=== PATIENT | female | born 1970 | race African-American/Black ===

== ENCOUNTER → 2017-08-05 09:14 | Outpatient (CLI) | payer OTHER, MEDICAID, SELFPAY ==
[2017-08-05 10:53] LABS: Add Manual Diff / Slide Review NO; Basophils Percent Auto 0.8 % (0-2); Eosinophils Percent Auto 3.7 % (2-4); Hematocrit 45.5 % (36-46); Hemoglobin 15.3 g/dL (12.0-16.0); Lymphocytes Percent Auto 39.3 % (25-40); Mean Corpuscular HGB Conc 33.5 % (30-36); Mean Corpuscular Hemoglobin 30.3 PG (26-34); Mean Corpuscular Volume 90.4 fL (80-100); Monocytes Percent Auto 8.1 % (3-14); Neutrophils Absolute Auto 2800 /uL (3000-5900); Neutrophils Percent Auto 48.1 % (50-75); Platelet Count 263 X10^3/uL (150-400); Red Blood Cell Count 5.03 X10^6/uL (4.0-5.2); White Blood Cell Count 5.9 X10^3/uL (4.5-11.0)
[2017-08-05 11:13] LABS: Blood Urea Nitrogen 21 mg/dL (7-17); Calcium 9.8 mg/dL (8.4-10.2); Carbon Dioxide 23 mmol/L (22-32); Chloride 103 mmol/L (98-107); Cholesterol 205 mg/dL (140-199); Estimated Glomerular Filt Rate > 60.0 mL/min (>60); Glucose 386 mg/dL (70-100); HDL Cholesterol 66 mg/dL (40-60); HEMOLYSIS < 15 (0-50); LDL Cholesterol Calculated 129 mg/dL (<100); Sodium 140 mmol/L (137-145); Triglycerides 51 mg/dL (35-150)
[2017-08-05 11:39] LABS: Hemoglobin A1C% w Est Avg Glu > 14.0 % (4.0-6.0)
== END ==
PROVIDERS: PCP Family Medicine; Visit Provider Family Medicine
DX: E11.29 Type 2 diabetes mellitus with other diabetic kidney complication (principal)
CPT/HCPCS: 36415; 80048; 80061; 83036; 85025

== ENCOUNTER 2017-11-03 15:14 | Emergency (ER) | payer OTHER, MEDICAID, SELFPAY ==
[2017-11-03 15:18] VITALS: BP 188/108; PULSE 95; RESP 18; TEMP 36.9; O2SAT 95; BMI 40.9
--- NOTE | 2017-11-03 15:55 | DI.RAD.S_ITS ---
PROCEDURE: XR CHEST 1V INDICATIONS: chest pain TECHNIQUE: One view of the chest was acquired. COMPARISON: None. FINDINGS: Surgical changes and devices: None. Lungs and pleura: There is slight appearance of streaky right basilar and retrocardiac opacities. Mediastinum: Mediastinal contours appear normal. Heart size is normal. Bones and chest wall: No suspicious bony lesions. Overlying soft tissues appear unremarkable. IMPRESSION: Slight right basilar and retrocardiac streaky opacities. This could be secondary to poor inspiratory effort. However, recommend correlation or developing airspace disease such as pneumonia. Dictated by: Rocío Rico M.D. on 11/03/2017 at 17:01 Approved by: Rocío Rico M.D. on 11/03/2017 at 17:02
[2017-11-03 16:09] VITALS: BP 172/99; PULSE 90; RESP 17; O2SAT 95
[2017-11-03 16:12] LABS: Add Manual Diff / Slide Review NO; Basophils Percent Auto 0.6 % (0-2); Eosinophils Percent Auto 2.3 % (2-4); Hematocrit 36.5 % (36-46); Hemoglobin 12.7 g/dL (12.0-16.0); Lymphocytes Percent Auto 23.7 % (25-40); Mean Corpuscular HGB Conc 34.9 % (30-36); Mean Corpuscular Hemoglobin 31.6 PG (26-34); Mean Corpuscular Volume 90.5 fL (80-100); Monocytes Percent Auto 7.3 % (3-14); Neutrophils Absolute Auto 5200 /uL (3000-5900); Neutrophils Percent Auto 66.1 % (50-75); Platelet Count 260 X10^3/uL (150-400); Red Blood Cell Count 4.03 X10^6/uL (4.0-5.2); Red Cell Distribution Width 13.4 % (11.6-14.8); White Blood Cell Count 7.8 X10^3/uL (4.5-11.0)
[2017-11-03] MEDS: MAG HYDROX/ALUMINUM/SIMETH SUS 20 ML, LIDOCAINE VISCOUS 2% 15 ML PO (16:17)
[2017-11-03] MEDS: PANTOPRAZOLE 40 MG VIAL IV (16:17)
[2017-11-03] MEDS: ASPIRIN 81 MG TAB 324 MG PO (16:17)
[2017-11-03] MEDS: SODIUM CHLORIDE 0.9% 1,000 ML 150 ML IV (16:18)
[2017-11-03 16:24] LABS: Alanine Aminotransferase 20 IU/L (9-52); Albumin Globulin Ratio 1.3 (1.0-2.8); Alkaline Phosphatase 61 U/L (38-126); Aspartate Aminotransferase 30 IU/L (14-36); BUN Creatinine Ratio 14.6 (6-22); Bilirubin Total 0.9 mg/dL (0.2-1.3); Blood Urea Nitrogen 19 mg/dL (7-17); Calcium 9.3 mg/dL (8.4-10.2); Carbon Dioxide 26 mmol/L (22-32); Chloride 110 mmol/L (98-107); Creatine Kinase 107 U/L (30-135); Estimated Glomerular Filt Rate 43.7 mL/min (>60); Globulin 3.2 g/dL (1.7-4.1); Glucose 149 mg/dL (70-100); Lipase 44 U/L (23-300); Sodium 145 mmol/L (137-145); Total Protein 7.2 g/dL (6.3-8.2)
[2017-11-03 16:35] LABS: Troponin I 0.017 ng/mL (0.01-0.034)
[2017-11-03 16:39] LABS: CKMB % Relative Index 1.3 % (1.5-5.0); Creatine Kinase MB 1.36 ng/mL (<2.37)
[2017-11-03 16:42] LABS: HEMOLYSIS 89 (0-50)
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
[2017-11-03] MEDS: METOPROLOL TARTRATE 5 MG/5 ML INJ IV ×3 (17:18→17:55)
[2017-11-03 17:32] VITALS: BP 161/105; PULSE 79
[2017-11-03] MEDS: NITROGLYCERIN 0.4 MG SL TAB SL (17:32)
[2017-11-03 17:47] VITALS: BP 158/90; PULSE 93
[2017-11-03 17:53] LABS: Troponin I < 0.012 ng/mL (0.01-0.034)
[2017-11-03 18:35] VITALS: BP 166/94; PULSE 76; RESP 18; O2SAT 97
== END 2017-11-03 19:00 | disposition home or self-care (01) ==
PROVIDERS: Emergency Provider Emergency Medicine; PCP Family Medicine
DX: R00.2 Palpitations (principal); R07.9 Chest pain, unspecified
CPT/HCPCS: 36415; 36591; 71045; 80053; 82550; 82553; 83690; 84484; 85025; 93005; 96361; 96374; 96375; 99283; 99285; C9113

== ENCOUNTER → 2018-08-27 11:12 | Outpatient (CLI) | payer OTHER, MEDICAID, SELFPAY ==
[2018-08-27 12:16] LABS: Hematocrit 41.3 % (36-46); Hemoglobin 14.3 g/dL (12.0-16.0); Mean Corpuscular HGB Conc 34.7 % (30-36); Mean Corpuscular Volume 89.5 fL (80-100); Platelet Count 291 X10^3/uL (150-400); Red Blood Cell Count 4.61 X10^6/uL (4.0-5.2); Red Cell Distribution Width 12.9 % (11.6-14.8); White Blood Cell Count 7.1 X10^3/uL (4.5-11.0)
[2018-08-27 12:21] LABS: Hemoglobin A1C% w Est Avg Glu 10.6 % (4.0-6.0)
[2018-08-27 12:52] LABS: Alanine Aminotransferase 15 IU/L (9-52); Albumin 3.8 g/dL (3.5-5.0); Albumin Globulin Ratio 1.4 (1.0-2.8); Alkaline Phosphatase 110 U/L (38-126); Aspartate Aminotransferase 15 IU/L (14-36); BUN Creatinine Ratio 26.7 (6-22); Bilirubin Total 0.5 mg/dL (0.2-1.3); Blood Urea Nitrogen 16 mg/dL (7-17); Calcium 9.6 mg/dL (8.4-10.2); Carbon Dioxide 25 mmol/L (22-32); Chloride 103 mmol/L (98-107); Cholesterol 154 mg/dL (140-199); Estimated Glomerular Filt Rate > 60.0 mL/min (>60); Globulin 2.8 g/dL (1.7-4.1); Glucose 270 mg/dL (70-100); HDL Cholesterol 55 mg/dL (40-60); HEMOLYSIS 16 (0-50); LDL Cholesterol Calculated 79 mg/dL (<100); Potassium 4.7 mmol/L (3.4-5.1); Sodium 138 mmol/L (137-145); Total Protein 6.6 g/dL (6.3-8.2); Triglycerides 98 mg/dL (35-150)
[2018-08-27 13:19] LABS: TSH w/ Reflex to FT4 1.76 uIU/mL (0.47-4.68)
[2018-08-27 14:41] LABS: Microalbumi Creatinin Ratio Ur 19.3 ug/mg CR (<30); Microalbumin Urine Random 5.6 mg/dL (0-1.6)
[2018-08-27 14:43] LABS: RBC Morphology Normal Morphology
== END ==
PROVIDERS: PCP Nurse Practitioner; Visit Provider Nurse Practitioner
DX: E11.29 Type 2 diabetes mellitus with other diabetic kidney complication (principal); E11.65 Type 2 diabetes mellitus with hyperglycemia; E66.01 Morbid (severe) obesity due to excess calories; F51.01 Primary insomnia; G47.31 Primary central sleep apnea; G47.33 Obstructive sleep apnea (adult) (pediatric); I10 Essential (primary) hypertension; R00.2 Palpitations; R80.9 Proteinuria, unspecified; Z68.41 Body mass index [BMI] 40.0-44.9, adult; Z79.4 Long term (current) use of insulin
CPT/HCPCS: 36415; 80053; 80061; 82043; 82570; 83036; 84443; 85025

== ENCOUNTER → 2019-01-12 12:35 | Outpatient (CLI) | payer OTHER, MEDICAID, SELFPAY | PROVIDERS: PCP Nurse Practitioner; Visit Provider Physician Assistant | DX: N89.8 Other specified noninflammatory disorders of vagina (principal) | CPT/HCPCS: 87210 ==

== ENCOUNTER → 2019-03-05 11:09 | Outpatient (CLI) | payer OTHER, MEDICAID, SELFPAY | PROVIDERS: PCP Nurse Practitioner; Visit Provider Physician Assistant | DX: N89.8 Other specified noninflammatory disorders of vagina (principal) | CPT/HCPCS: 87210 ==

== ENCOUNTER → 2019-04-14 09:23 | Outpatient (CLI) | payer OTHER, MEDICAID, SELFPAY ==
[2019-04-14 10:54] LABS: Glucose 244 mg/dL (70-100); Hemoglobin A1C% w Est Avg Glu 9.9 % (4.0-6.0)
== END ==
PROVIDERS: PCP Nurse Practitioner; Referring Provider Nurse Practitioner; Visit Provider Nurse Practitioner
DX: E11.65 Type 2 diabetes mellitus with hyperglycemia (principal); E11.29 Type 2 diabetes mellitus with other diabetic kidney complication; R80.9 Proteinuria, unspecified; Z79.4 Long term (current) use of insulin
CPT/HCPCS: 36415; 82947; 83036

== ENCOUNTER → 2019-06-16 09:07 | Outpatient (CLI) | payer OTHER, MEDICAID, SELFPAY ==
--- NOTE | 2019-06-16 09:08 | DI.ECHO.S_ITS ---
[facility] +---------+ : : [address] : : : : [id number] : : : : Phone: [phone]+ Echocardiogram Report + + :Name: KAYLA BENJAMIN Study Date: 06/16/2019 Height: 65 in : :[facility] Weight: 251 lb : : Gender: Female BSA: 2.2 m2 : :: 1970 Age: 49 yrs BP: 132/78 mmHg: :Reason For Study: shortness of breath : : Performed By: Noy Santiago : :Referring: SCOUT ZUNIGA : + + Interpretation Summary There is moderate concentric left ventricular hypertrophy. Apical hypertrophy is present. The ejection fraction is estimated to be 30-35%. There is moderate global hypokinesis of the left ventricle. There is mild mitral regurgitation. There is mild tricuspid regurgitation. The right ventricular systolic pressure is estimated to be at least 34 mmHg based on an estimated right atrial pressure of 3 mm Hg. Procedure: A two-dimensional transthoracic echocardiogram with color flow and Doppler was performed. The study quality was technically adequate. There is no prior echocardiogram noted for this patient. Images from the parasternal window were difficult to obtain and are suboptimal in quality. The patient was in normal sinus rhythm during the exam. Left Ventricle: Left ventricular size is at the upper limits of normal. There is moderate concentric left ventricular hypertrophy. Apical hypertrophy is present. Average longitudinal global strain average of -12.0%. The ejection fraction is estimated to be 30-35%. There is moderate global hypokinesis of the left ventricle. Right Ventricle: The right ventricle is normal in size and function. Atria: The left atrium is mildly dilated. The right atrium is mildly dilated. Mitral Valve: The mitral valve leaflets appear mildly thickened, but open well. There is mild mitral regurgitation. Aortic Valve: The aortic valve is trileaflet. The aortic valve opens well. The aortic valve is not well visualized. There is trace aortic regurgitation. Tricuspid Valve: The tricuspid valve is not well visualized, but is grossly normal. There is mild tricuspid regurgitation. The right ventricular systolic pressure is estimated to be at least 34 mmHg based on an estimated right atrial pressure of 3 mm Hg. Pulmonic Valve: The pulmonic valve is not well seen, but is grossly normal. There is no pulmonic valvular regurgitation. Great Vessels: The aortic root is normal size. The ascending aorta could not be visualized. The IVC is of normal diameter and collapses greater than 50% with a sniff. This suggests a low right atrial pressure of 3 mm Hg. Pericardium/ Pleura There is no pericardial effusion. There is no pleural effusion. MMode/2D Measurements & Calculations LVIDd: 5.2 cm LA A2 area: 22.7 cm2 LVIDs: 3.9 cm LA A4 area: 22.9 cm2 FS: 24.6 % LA length (vol): 5.9 cm EPSS: 0.99 cm LA vol: 74.9 ml IVSd: 1.5 cm LA vol index: 34.4 ml/m2 LVPWd: 1.4 cm LV cordero. diameter/BSA (cm/m^2): 2.4 LV sys. diameter/BSA (cm/m^2): 1.8 RA long axis: 5.6 cm RVD1 (basal): 3.6 cm RA area: 19.8 cm2 TAPSE: 2.9 cm RA vol: 59.6 ml RA : 27.4 ml/m2 Doppler Measurements & Calculations Ao V2 max: 169.6 cm/sec LVOT Max Andrew: 104.2 cm/sec Ao V2 mean: 117.5 cm/sec LV V1 max P.3 mmHg Ao max P.5 mmHg LV V1 VTI: 19.1 cm Ao mean P.3 mmHg sev ratio: 0.61 Ao V2 VTI: 31.3 cm MV E max andrew: 94.3 cm/sec TR max andrew: 276.9 cm/sec MV A max andrew: 89.1 cm/sec TR max P.7 mmHg MV E/A: 1.1 PA V2 max: 81.1 cm/sec Med Peak E' Andrew: 6.1 cm/sec PA V2 mean: 49.5 cm/sec E/E' med: 15.5 PA mean P.2 mmHg Lat Peak E' Andrew: 5.5 cm/sec PA pr(Accel): 41.3 mmHg E/E' lat: 17.2 E/e' average: 16.4 MV dec time: 0.19 sec Reading Physician:02:42 PM
== END ==
PROVIDERS: PCP Nurse Practitioner; Referring Provider Nurse Practitioner; Visit Provider Nurse Practitioner
DX: I08.1 Rheumatic disorders of both mitral and tricuspid valves (principal); R06.02 Shortness of breath; E88.81 Metabolic syndrome and other insulin resistance
CPT/HCPCS: 93306

== ENCOUNTER → 2019-06-30 10:45 | Outpatient (CLI) | payer OTHER, MEDICAID, SELFPAY ==
--- NOTE | 2019-06-30 10:46 | DI.NM.S_ITS ---
PROCEDURE: [place] WILTON PERF SPECT R&S PHARM Rest and pharmacological stress myocardial perfusion SPECT with gated imaging and ejection fraction RADIOPHARMACEUTICAL: 24.9 mCi Tc-99m tetrafosmin IV at rest and 25.9 mCi Tc-99m tetrafosmin IV at peak effect of pharmacological stress. [id number] was performed. INDICATIONS: L bundle branch block, palpitations TECHNIQUE: Radiopharmaceutical was injected at peak stress test, and also at rest. SPECT images were obtained. SPECT myocardial perfusion images were displayed in short axis, horizontal long axis, and vertical long axis views. Gated images were reviewed using [employer] software. COMPARISON: [facility], [place], LEXISCAN MYOCARDIAL PERFUSION, 01/20/2015, 10:38. CARDIAC STRESS: A pharmacologic stress test was performed under the supervision of an attending staff, using an infusion of Lexiscan . Hemodynamic data: There is normal blood pressure and heart rate response to pharmacologic stress. Symptoms: The patient denied anginal chest pain. Aminophylline: Not used. EKG: Baseline LBBB. No diagnostic changes of ischemia; no ectopy. FINDINGS: Raw data: There is good myocardial uptake of radiotracer. There is significant motion artifacts; reportedly patient was coughing during the study. Ijlj-iy-lecpq ratio is 0.32 (normal is less than 0.38 for tetrafosmin tracer). Left ventricle function: Gated images demonstrate normal left ventricular wall thickening. No segmental wall motion abnormalities. No transient ischemic dilation; TID is 1.11 (normal less than 1.3). Left ventricle resting end diastolic volume is 201 mL. Left ventricle stress ejection fraction is 43% ; normal range is above 45%. Myocardial perfusion: There is a moderate size, mild, fixed apical septal, mid anteroseptal and basal anterior anteroseptal defect both on supine post-stress and rest images which improves on prone imaging and is mostly consistent with breast attenuation artifact rather than true infarct. Otherwise there is normal distribution of activity in the left ventricular myocardium. IMPRESSION: -Probably normal myocardial perfusion. The perfusion defect almost resolves on prone imaging and was described in the prior study as well. This is mostly consistent with breast attenuation artifact than true infarct. -Gating image quality was poor due to significant motion artifact. The post stress LVEF is mildly reduced at 43%. But please correlate with echocardiogram. Dictated by: Justin Gatica M.D. on 07/01/2019 at 18:28 Approved by: Justin Gatica M.D. on 07/01/2019 at 18:40
== END ==
PROVIDERS: PCP Nurse Practitioner; Referring Provider Nurse Practitioner; Visit Provider Nurse Practitioner
DX: I44.7 Left bundle-branch block, unspecified (principal); R00.2 Palpitations; I10 Essential (primary) hypertension
CPT/HCPCS: 78452; 93017; A9502; J2785

== ENCOUNTER → 2020-07-03 09:18 | Outpatient (CLI) | payer OTHER, SELFPAY ==
[2020-07-03 10:21] LABS: Add Manual Diff / Slide Review NO; Basophils Absolute Auto 0 /uL (0-100); Basophils Percent Auto 0.9 % (0-2); Eosinophils Absolute Auto 200 /uL (0-450); Eosinophils Percent Auto 3.8 % (2-4); Hematocrit 39.8 % (36-46); Hemoglobin 13.5 g/dL (12.0-16.0); Lymphocytes Absolute Auto 2000 /uL (1100-4500); Lymphocytes Percent Auto 38.5 % (25-40); Mean Corpuscular HGB Conc 33.8 % (30-36); Mean Corpuscular Hemoglobin 31.1 PG (26-34); Mean Corpuscular Volume 91.9 fL (80-100); Monocytes Absolute Auto 500 /uL (0-900); Neutrophils Absolute Auto 2400 /uL (1500-7000); Neutrophils Percent Auto 46.8 % (50-75); Platelet Count 216 X10^3/uL (150-400); Red Blood Cell Count 4.33 X10^6/uL (4.0-5.2); Red Cell Distribution Width 12.7 % (11.6-14.8); White Blood Cell Count 5.2 X10^3/uL (4.5-11.0)
[2020-07-03 10:28] LABS: Hemoglobin A1C% w Est Avg Glu 13.9 % (4.0-6.0)
[2020-07-03 10:29] LABS: Alanine Aminotransferase 20 IU/L (<35); Albumin 3.8 g/dL (3.5-5.0); Albumin Globulin Ratio 1.3 (1.0-2.8); Alkaline Phosphatase 86 U/L (38-126); Aspartate Aminotransferase 21 IU/L (14-36); BUN Creatinine Ratio 22.1 (6-22); Bilirubin Total 0.4 mg/dL (0.2-1.3); Blood Urea Nitrogen 15 mg/dL (7-17); Carbon Dioxide 22 mmol/L (22-32); Chloride 107 mmol/L (98-107); Cholesterol 168 mg/dL (140-199); Estimated Glomerular Filt Rate > 60.0 mL/min (>60); Globulin 2.9 g/dL (1.7-4.1); Glucose 298 mg/dL (70-100); HDL Cholesterol 65 mg/dL (40-60); HEMOLYSIS < 15 (0-50); LDL Cholesterol Calculated 95 mg/dL (<100); Potassium 3.8 mmol/L (3.4-5.1); Sodium 137 mmol/L (137-145); Total Protein 6.7 g/dL (6.3-8.2); Triglycerides 42 mg/dL (35-150)
[2020-07-03 11:19] LABS: Free T3, Triiodothyronine Free 3.37 pg/mL (2.77-5.27); Free T4, Direct Thyroxine 1.29 ng/dL (0.78-2.19)
[2020-07-03 11:32] LABS: Thyroid Stimulating Hormone 1.76 uIU/mL (0.47-4.68)
[2020-07-03 11:48] LABS: Creatinine Urine Random 96.3 mg/dL
[2020-07-03 11:53] LABS: Microalbumi Creatinin Ratio Ur 21.8 ug/mg CR (<30); Microalbumin Urine Random 2.1 mg/dL (0-1.6)
== END ==
PROVIDERS: PCP Nurse Practitioner; Referring Provider Nurse Practitioner; Visit Provider Nurse Practitioner
DX: E11.9 Type 2 diabetes mellitus without complications (principal); E78.5 Hyperlipidemia, unspecified; I10 Essential (primary) hypertension; E11.29 Type 2 diabetes mellitus with other diabetic kidney complication; E11.65 Type 2 diabetes mellitus with hyperglycemia; E66.01 Morbid (severe) obesity due to excess calories; E78.2 Mixed hyperlipidemia; R80.9 Proteinuria, unspecified; Z68.41 Body mass index [BMI] 40.0-44.9, adult; Z79.4 Long term (current) use of insulin
CPT/HCPCS: 36415; 80053; 80061; 82043; 82570; 83036; 84439; 84443; 84481; 85025

== ENCOUNTER → 2020-10-24 11:43 | Outpatient (CLI) | payer OTHER, SELFPAY ==
[2020-10-24 12:44] LABS: COVID19 -Nasal RAPID Negative (Negative)
== END ==
PROVIDERS: PCP Nurse Practitioner; Visit Provider Physician Assistant
DX: R53.83 Other fatigue (principal); Z20.822 Contact with and (suspected) exposure to COVID-19; R52 Pain, unspecified
CPT/HCPCS: 87635

== ENCOUNTER → 2021-02-26 11:31 | Outpatient (CLI) | payer OTHER, SELFPAY ==
[2021-02-26 13:46] LABS: Hemoglobin A1C% w Est Avg Glu 12.6 % (4.0-6.0)
[2021-02-26 14:02] LABS: Alanine Aminotransferase 22 IU/L (<35); Albumin 3.9 g/dL (3.5-5.0); Albumin Globulin Ratio 1.4 (1.0-2.8); Alkaline Phosphatase 69 U/L (38-126); Aspartate Aminotransferase 21 IU/L (14-36); BUN Creatinine Ratio 20.4 (6-22); Bilirubin Total 0.3 mg/dL (0.2-1.3); Blood Urea Nitrogen 20 mg/dL (7-17); Calcium 9.2 mg/dL (8.4-10.2); Carbon Dioxide 26 mmol/L (22-32); Chloride 106 mmol/L (98-107); Cholesterol 156 mg/dL (140-199); Estimated Glomerular Filt Rate 59.6 mL/min (>60); Globulin 2.8 g/dL (1.7-4.1); Glucose 293 mg/dL (70-100); HDL Cholesterol 66 mg/dL (40-60); HEMOLYSIS < 15 (0-50); LDL Cholesterol Calculated 82 mg/dL (<100); Potassium 4.4 mmol/L (3.4-5.1); Sodium 137 mmol/L (137-145); Total Protein 6.7 g/dL (6.3-8.2); Triglycerides 38 mg/dL (35-150)
== END ==
PROVIDERS: PCP Nurse Practitioner; Referring Provider Nurse Practitioner; Visit Provider Nurse Practitioner
DX: E11.29 Type 2 diabetes mellitus with other diabetic kidney complication (principal); E11.65 Type 2 diabetes mellitus with hyperglycemia; R80.9 Proteinuria, unspecified; Z79.4 Long term (current) use of insulin; E78.2 Mixed hyperlipidemia; Z79.899 Other long term (current) drug therapy
CPT/HCPCS: 36415; 80053; 80061; 83036

== ENCOUNTER → 2021-06-04 11:11 | Outpatient (CLI) | payer OTHER, SELFPAY ==
--- NOTE | 2021-06-04 11:12 | DI.RAD.S_ITS ---
PROCEDURE: XR FOOT LT MIN 3V INDICATIONS: Foot pain TECHNIQUE: 3 views of the foot were acquired. COMPARISON: None. FINDINGS: Bones: No fractures or dislocations. Osteoarthritic changes are seen in midfoot and forefoot joints more prominent at navicular cuneiform joints and tarsal metatarsal joints. No suspicious bony lesions. Well-defined plantar and dorsal calcaneal enthesophytes are seen. Soft tissues: Mild soft tissue swelling over dorsal aspect of TMT joints are seen. No tibiotalar joint effusion. Achilles tendon appears normal. IMPRESSION: Osteoarthritic changes in left foot more prominent in midfoot joints with mild dorsal soft tissue swelling. No acute fracture or dislocation. Well-defined calcaneal enthesophytes. Dictated by: Dilip Le M.D. on 06/04/2021 at 11:44 Approved by: Dilip Le M.D. on 06/04/2021 at 11:45
--- NOTE | 2021-06-04 11:12 | DI.RAD.S_ITS ---
PROCEDURE: XR ANKLE LT MIN 3V INDICATIONS: Foot pain TECHNIQUE: 3 views of the ankle were acquired. COMPARISON: None. FINDINGS: Bones: No fractures or dislocations. Ankle mortise is normally aligned. No suspicious bony lesions. Well-defined plantar and dorsal calcaneal enthesophytes are seen. Soft tissues: No tibiotalar joint effusion. Achilles tendon appears normal. IMPRESSION: No ankle fracture or dislocation. Ankle mortise is congruent. Calcaneal enthesophytes. Dictated by: Dilip Le M.D. on 06/04/2021 at 11:45 Approved by: Dilip Le M.D. on 06/04/2021 at 11:48
== END ==
PROVIDERS: PCP Nurse Practitioner; Referring Provider Student in an Organized Health Care Education/Training Program; Visit Provider Student in an Organized Health Care Education/Training Program
DX: M79.672 Pain in left foot (principal); M77.32 Calcaneal spur, left foot
CPT/HCPCS: 73610; 73630

== ENCOUNTER → 2022-02-22 09:57 | Outpatient (CLI) | payer OTHER, SELFPAY ==
[2022-02-22 11:16] LABS: Add Manual Diff / Slide Review NO; Basophils Absolute Auto 0 /uL (0-100); Basophils Percent Auto 0.9 % (0-2); Eosinophils Absolute Auto 200 /uL (0-450); Eosinophils Percent Auto 4.7 % (2-4); Hemoglobin 13.2 g/dL (12.0-16.0); Lymphocytes Absolute Auto 2300 /uL (1100-4500); Lymphocytes Percent Auto 43.6 % (25-40); Mean Corpuscular HGB Conc 33.9 % (30-36); Mean Corpuscular Hemoglobin 30.2 PG (26-34); Monocytes Absolute Auto 600 /uL (0-900); Monocytes Percent Auto 10.8 % (3-14); Neutrophils Absolute Auto 2100 /uL (1500-7000); Platelet Count 255 X10^3/uL (150-400); Red Blood Cell Count 4.38 X10^6/uL (4.0-5.2); Red Cell Distribution Width 12.5 % (11.6-14.8); White Blood Cell Count 5.2 X10^3/uL (4.5-11.0)
[2022-02-22 11:25] LABS: Hemoglobin A1C% w Est Avg Glu 11.6 % (4.0-6.0)
[2022-02-22 11:49] LABS: Alanine Aminotransferase 20 IU/L (<35); Albumin 3.9 g/dL (3.5-5.0); Albumin Globulin Ratio 1.3 (1.0-2.8); Alkaline Phosphatase 81 U/L (38-126); Aspartate Aminotransferase 21 IU/L (14-36); BUN Creatinine Ratio 26.4 (6-22); Bilirubin Total 0.5 mg/dL (0.2-1.3); Blood Urea Nitrogen 24 mg/dL (7-17); Calcium 9.1 mg/dL (8.4-10.2); Carbon Dioxide 24 mmol/L (22-32); Chloride 103 mmol/L (98-107); Cholesterol 162 mg/dL (140-199); Estimated Glomerular Filt Rate > 60 mL/min (>60); Glucose 285 mg/dL (70-100); HDL Cholesterol 75 mg/dL (40-60); HEMOLYSIS < 15 (0-50); LDL Cholesterol Calculated 77 mg/dL (<100); Potassium 4.4 mmol/L (3.4-5.1); Sodium 135 mmol/L (137-145); Total Protein 6.9 g/dL (6.3-8.2); Triglycerides 48 mg/dL (35-150)
[2022-02-22 12:06] LABS: Free T3, Triiodothyronine Free 4.12 pg/mL (2.77-5.27); Free T4, Direct Thyroxine 1.46 ng/dL (0.78-2.19)
[2022-02-22 12:12] LABS: Creatinine Urine Random 135.4 mg/dL
[2022-02-22 12:19] LABS: Microalbumi Creatinin Ratio Ur 22.1 ug/mg CR (<30)
== END ==
PROVIDERS: PCP Nurse Practitioner; Referring Provider Nurse Practitioner; Visit Provider Nurse Practitioner
DX: Z00.00 Encounter for general adult medical examination without abnormal findings (principal); E11.29 Type 2 diabetes mellitus with other diabetic kidney complication; E11.65 Type 2 diabetes mellitus with hyperglycemia; E78.2 Mixed hyperlipidemia; I10 Essential (primary) hypertension; R80.9 Proteinuria, unspecified; Z79.4 Long term (current) use of insulin; Z91.14 Patient's other noncompliance with medication regimen
CPT/HCPCS: 36415; 80053; 80061; 82043; 82570; 83036; 84439; 84443; 84481; 85025

== ENCOUNTER → 2022-09-13 08:32 | Outpatient (CLI) | payer OTHER, SELFPAY ==
[2022-09-13 10:13] LABS: Creatinine Urine Random 98.4 mg/dL
[2022-09-13 10:17] LABS: Microalbumi Creatinin Ratio Ur 9.1 ug/mg CR (<30); Microalbumin Urine Random 0.9 mg/dL (0-1.6)
[2022-09-13 10:58] LABS: Alanine Aminotransferase 20 IU/L (<35); Albumin 3.9 g/dL (3.5-5.0); Albumin Globulin Ratio 1.4 (1.0-2.8); Alkaline Phosphatase 92 U/L (38-126); Aspartate Aminotransferase 21 IU/L (14-36); BUN Creatinine Ratio 24.7 (6-22); Bilirubin Total 0.5 mg/dL (0.2-1.3); Blood Urea Nitrogen 21 mg/dL (7-17); Calcium 9.6 mg/dL (8.4-10.2); Carbon Dioxide 21 mmol/L (22-32); Chloride 106 mmol/L (98-107); Estimated Glomerular Filt Rate > 60 mL/min (>60); Globulin 2.8 g/dL (1.7-4.1); Glucose 316 mg/dL (70-100); HEMOLYSIS < 15 (0-50); Potassium 4.4 mmol/L (3.4-5.1); Sodium 135 mmol/L (137-145); Total Protein 6.7 g/dL (6.3-8.2)
[2022-09-14 07:03] LABS: x Labcorp Estim. Avg Glu (eAG) 367 mg/dL (.); x Labcorp Hemoglobin A1c 14.4 % (4.8-5.6)
== END ==
PROVIDERS: PCP Nurse Practitioner; Referring Provider Nurse Practitioner; Visit Provider Nurse Practitioner
DX: E11.29 Type 2 diabetes mellitus with other diabetic kidney complication (principal); E11.65 Type 2 diabetes mellitus with hyperglycemia; E66.01 Morbid (severe) obesity due to excess calories; E66.9 Obesity, unspecified; E78.2 Mixed hyperlipidemia; I10 Essential (primary) hypertension; R80.9 Proteinuria, unspecified; Z79.4 Long term (current) use of insulin; Z91.148 Patient's other noncompliance with medication regimen for other reason
CPT/HCPCS: 36415; 80053; 82043; 82570; 83036

== ENCOUNTER → 2023-04-28 12:30 | Outpatient (CLI) | payer OTHER, SELFPAY ==
[2023-04-28 13:36] LABS: Hemoglobin A1C% w Est Avg Glu > 14.0 % (4.0-6.0)
[2023-04-28 13:38] LABS: Alanine Aminotransferase 22 IU/L (<35); Albumin 4.1 g/dL (3.5-5.0); Albumin Globulin Ratio 1.2 (1.0-2.8); Alkaline Phosphatase 73 U/L (38-126); Aspartate Aminotransferase 24 IU/L (14-36); BUN Creatinine Ratio 27.4 (6-22); Bilirubin Total 0.6 mg/dL (0.2-1.3); Blood Urea Nitrogen 23 mg/dL (7-17); Calcium 9.1 mg/dL (8.4-10.2); Carbon Dioxide 23 mmol/L (22-32); Chloride 107 mmol/L (98-107); Cholesterol 165 mg/dL (140-199); Estimated Glomerular Filt Rate > 60 mL/min (>60); Globulin 3.3 g/dL (1.7-4.1); Glucose 294 mg/dL (70-100); HDL Cholesterol 70 mg/dL (40-60); HEMOLYSIS 34 (0-50); LDL Cholesterol Calculated 85 mg/dL (<100); Potassium 4.2 mmol/L (3.4-5.1); Sodium 136 mmol/L (137-145); Total Protein 7.4 g/dL (6.3-8.2); Triglycerides 50 mg/dL (35-150)
[2023-04-28 16:29] LABS: Creatinine Urine Random 149.1 mg/dL
[2023-04-28 16:37] LABS: Microalbumin Urine Random 1.5 mg/dL (0-1.6)
== END ==
PROVIDERS: PCP Nurse Practitioner; Referring Provider Nurse Practitioner; Visit Provider Nurse Practitioner
DX: E11.29 Type 2 diabetes mellitus with other diabetic kidney complication (principal); E11.65 Type 2 diabetes mellitus with hyperglycemia; R80.9 Proteinuria, unspecified; Z79.4 Long term (current) use of insulin; I10 Essential (primary) hypertension
CPT/HCPCS: 36415; 80053; 80061; 82043; 82570; 83036

== ENCOUNTER → 2023-07-09 15:05 | Outpatient (CLI) | payer OTHER, SELFPAY ==
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
== END ==
LOC: RAD 15:06
PROVIDERS: PCP Nurse Practitioner; Referring Provider Physician Assistant Surgical; Visit Provider Physician Assistant Surgical
DX: M19.011 Primary osteoarthritis, right shoulder (principal); M50.121 Cervical disc disorder at C4-C5 level with radiculopathy; S49.91XA Unspecified injury of right shoulder and upper arm, initial encounter; R07.89 Other chest pain; X58.XXXA Exposure to other specified factors, initial encounter
CPT/HCPCS: 71046; 72050; 73030

== ENCOUNTER 2024-03-17 13:32 | Emergency (ER) | payer OTHER, SELFPAY ==
[2024-03-17] VITALS (13 sets, daily range): BP systolic 171–193; BP diastolic 83–103; PULSE 77–90; RESP 12–23; TEMP 36.9; O2SAT 90–98; BMI 40.1
--- NOTE | 2024-03-17 13:40 | DI.RAD.S_ITS ---
PROCEDURE: XR CHEST 1V INDICATIONS: chest pain TECHNIQUE: One view of the chest was acquired. COMPARISON: [facility], CR, XR CHEST 2V, 07/09/2023, 15:17. FINDINGS: Surgical changes and devices: None. Lungs and pleura: Mild interstitial pulmonary edema. No pleural effusions or pneumothorax. Mediastinum: Mediastinal contours appear normal. Heart size is mildly enlarged. Bones and chest wall: No suspicious bony lesions. Overlying soft tissues appear unremarkable. IMPRESSION: Mild congestive heart failure. Dictated by: Wale Antoine M.D. on 03/17/2024 at 14:28 Approved by: Wale Antoine M.D. on 03/17/2024 at 14:29
--- NOTE | 2024-03-17 13:40 | EKG_ITS ---
[place] [id number] [place] [id number] Test Date: 2024-03-17 Pat Name: Hailey Suresh Department: [facility] Room: Gender: Female Clam Sorter: to : 1970 Requested By: Order Number: [id number] Reading MD: Troy Forbes Measurements Intervals [place] Rate: 82 P: 58 AK: 150 QRS: 10 QRSD: 156 T: 145 QT: 424 QTc: 495 Interpretive Statements Normal sinus rhythm Left bundle branch block Electronically Signed On 03-18-2024 20:04:31 PST by Troy Forbes
[2024-03-17 14:14] LABS: Add Manual Diff / Slide Review NO; Basophils Absolute Auto 100 /uL (0-100); Basophils Percent Auto 1.1 % (0-2); Eosinophils Absolute Auto 200 /uL (0-450); Eosinophils Percent Auto 2.7 % (2-4); Hemoglobin 12.4 g/dL (12.0-16.0); Lymphocytes Absolute Auto 1800 /uL (1100-4500); Lymphocytes Percent Auto 28.6 % (25-40); Mean Corpuscular HGB Conc 33.6 % (30-36); Mean Corpuscular Hemoglobin 30.6 PG (26-34); Mean Corpuscular Volume 91.2 fL (80-100); Monocytes Absolute Auto 500 /uL (0-900); Monocytes Percent Auto 8.4 % (3-14); Neutrophils Absolute Auto 3700 /uL (1500-7000); Neutrophils Percent Auto 59.2 % (50-75); Platelet Count 280 X10^3/uL (150-400); Red Blood Cell Count 4.06 X10^6/uL (4.0-5.2); Red Cell Distribution Width 12.8 % (11.6-14.8); White Blood Cell Count 6.2 X10^3/uL (4.5-11.0)
[2024-03-17 14:21] LABS: Prothrombin Time 11.8 SECONDS (9.4-12.5)
[2024-03-17] MEDS: ASPIRIN 81 MG CHEW TAB 324 MG PO (14:21)
[2024-03-17 14:23] LABS: PTT Partial Thromboplastin Tim 37 SECONDS (25.1-36.5)
[2024-03-17 14:30] LABS: Alanine Aminotransferase 19 IU/L (<35); Albumin Globulin Ratio 1.3 (1.0-2.8); Alkaline Phosphatase 81 U/L (38-126); Aspartate Aminotransferase 25 IU/L (14-36); BUN Creatinine Ratio 17.1 (6-22); Bilirubin Total 0.6 mg/dL (0.2-1.3); Blood Urea Nitrogen 14 mg/dL (7-17); Calcium 8.9 mg/dL (8.4-10.2); Carbon Dioxide 22 mmol/L (22-32); Chloride 109 mmol/L (98-107); Creatine Kinase 117 U/L (30-135); Estimated Glomerular Filt Rate > 60 mL/min (>60); Glucose 150 mg/dL (70-100); HEMOLYSIS < 15 (0-50); Lipase 93 U/L (23-300); Magnesium 1.5 mg/dL (1.6-2.3); Potassium 3.5 mmol/L (3.4-5.1); Sodium 138 mmol/L (137-145)
[2024-03-17 14:41] LABS: NT-proBNP (BNP-Adult 18+) 820 pg/mL (<125); Troponin I 0.015 ng/mL (0.01-0.034)
--- NOTE | 2024-03-17 15:23 | ED.SOB ---
HPI - SOB/Dyspnea General Chief Complaint: Shortness of Breath/Dyspnea Stated Complaint: SOB, rapid heart rate Time Seen by Provider: 03/17/24 14:18 Source: patient Mode of arrival: Ambulatory Limitations: other History of Present Illness HPI Narrative: Patient is a 54-year-old female who has hypertension diabetes presenting today with increasing shortness breath. She reports significant shortness breath with exertion she endorses orthopnea no significant lower extremity swelling. Denies any fever chills or cough. Not really having any chest pain. Reports that she has not been taking her medication because she has difficulty with finances having to choose between rent and medication. She reports that she was supposed to be taking hydrochlorothiazide and lisinopril but isn't taking either Related Data Home Medications Medication Instructions Recorded Confirmed Respironics DreamStation Auto CPAP #1 ea 03/25/18 07/09/23 insulin NPH-regular 70-30 U-100 20 unit SUBCUT BID 09/24/23 insulin 100 unit/mL subcutaneous pen blood-glucose sensor (FreeStyle #1 ea 10/21/23 10/21/23 Ann 3 Sensor device) Previous Rx's Medication Instructions Recorded [place] #100 ea 09/29/18 glucose monitor one touch vario #1 ea 06/26/20 pen needle, diabetic 32 gauge x ##100 09/11/21 5/32 (BD Nae 2nd Gen Pen Needle) loratadine 10 mg tablet (Allergy 10 mg PO DAILY PRN allergy 09/06/22 Relief (loratadine)) symptoms #90 tabs tobramycin 0.3 % eye drops 2 drp ophthalmic (eye) TID 7 days 03/28/23 #5 mL Lancets #100 ea 05/05/23 one touch vario test strip #100 ea 05/05/23 hydrochlorothiazide 25 mg tablet See Rx Instructions .Route 05/14/23 .COMPLEX #90 tabs lisinopril 40 mg tablet See Rx Instructions .Route 05/14/23 .COMPLEX #90 tabs metformin 500 mg tablet,extended See Rx Instructions .Route 05/14/23 release 24 hr .COMPLEX #360 tabs rosuvastatin 40 mg tablet 40 mg PO DAILY #90 tabs 05/14/23 pen needle, diabetic 32 gauge x #100 ea 10/09/23 5/32 (TRUEplus Pen Needle) furosemide 20 mg tablet (Lasix) 20 mg PO DAILY #10 tabs 03/17/24 lisinopril 40 mg tablet 40 mg PO DAILY #30 tabs 03/17/24 Allergies Allergy/AdvReac Type Severity Reaction Status Date / Time hydrocodone [HYDROCODONE] Allergy Mild FROM Verified 10/21/23 09:21 VICODIN - HIVES Patient History Medical History Diabetes mellitus, with long-term current use of insulin Hordeolum externum of right lower eyelid Conjunctivitis Gastric reflux Elevated blood pressure reading with diagnosis of hypertension Shortness of breath on exertion Noncompliance w/medication treatment due to intermit use of medication Weight loss counseling, encounter for Non-insulin dependent type 2 diabetes mellitus Chronic joint pain Type 2 diabetes mellitus Behaviorally induced insufficient sleep syndrome Primary insomnia Morbid obesity with BMI of 40.0-44.9, adult Central sleep apnea Excessive daytime sleepiness Insomnia, persistent Obstructive sleep apnea of adult Snoring Diabetes mellitus (2011) Hypertension Hayfever Ankle pain (2014) Ventricular premature beats (01/31/15) Hypertension Left bundle branch block Palpitations Surgical History Anesthesia History of right knee surgery Status post delivery Family History Brother Age: 62 Diabetes mellitus Father Stroke Grandmother Diabetes mellitus Mother Diabetes mellitus Social History marital status: unmarried,single details: lives with 12-yo daughter; in last quarter of school at [employer] [place] lives independently: Yes caregiver/support person: No education level: college occupational status: student miguelito/evangelical: Sikhism other: very active in denominational Smoking Status: Never smoker alcohol intake: current substance use type: does not use Smoking Status: Never smoker Alcohol type: wine Exam Initial Vital Signs Initial Vital Signs: Vital Signs Pulse Rate 90 03/17/24 13:46 Respiratory Rate 14 03/17/24 13:46 Pulse Oximetry 96 03/17/24 13:46 GENERAL: Alert well-appearing 54-year-old female and in no acute distress. HEENT: Head atraumatic,EOMI, pupils reactive, face symmetric, moist mucous membranes CARDIOVASCULAR: Regular rate and rhythm without murmurs, rubs or gallops. RESPIRATORY: Breath sounds equal bilaterally, no wheezes rales or rhonchi. Conversational Dyspnea, clear breath sounds ABDOMEN: Soft, nontender. Normoactive bowel sounds all 4 quadrants. No guarding or rebound. EXTREMITIES: Normal range of motion, no clubbing or lower extremity edema. Neurovascularly intact NEUROLOGICAL: Alert and oriented x4.Normal gait and speech. Cranial nerves II through XII grossly intact. SKIN: Warm, dry, no laceration, no petechiae, no rashes or lesions. Course Orders Ordered: Discontinued Medications Aspirin (Aspirin 81 Mg Chew Tab) 324 mg PO NOW ONE Stop: 03/17/24 13:41 Last Admin: 03/17/24 14:21 Dose: 324 mg Documented By: Furosemide (Furosemide 40 Mg/4 Ml Vial) 40 mg IV NOW ONE Stop: 03/17/24 15:40 Last Admin: 03/17/24 15:52 Dose: 40 mg Documented By: BRYAN Vital Signs Vital signs: Vital Signs - 8 hr 03/17/24 13:46 03/17/24 13:50 03/17/24 14:00 Temperature 98.4 F Pulse Rate 90 90 89 Respiratory Rate 14 17 14 Blood Pressure 175/94 H 177/87 H Pulse Oximetry 96 96 98 Oxygen Delivery Method Room Air 03/17/24 14:30 03/17/24 14:30 Temperature Pulse Rate 80 Respiratory Rate 12 Blood Pressure 175/97 H Pulse Oximetry 95 Oxygen Delivery Method MDM - SOB/Dyspnea Lab Data 03/17/24 14:05 03/17/24 14:05 Labs: Lab Results 03/17/24 03/17/24 Range/Units 14:05 16:28 WBC 6.2 (4.5-11.0) X10^3/uL RBC 4.06 (4.0-5.2) X10^6/uL Hgb 12.4 (12.0-16.0) g/dL Hct 37.0 (36-46) % MCV 91.2 (80-100) fL MCH 30.6 (26-34) PG MCHC 33.6 (30-36) % RDW 12.8 (11.6-14.8) % Plt Count 280 (150-400) X10^3/uL Neut % (Auto) 59.2 (50-75) % Lymph % (Auto) 28.6 (25-40) % [place] % (Auto) 8.4 (3-14) % Eos % (Auto) 2.7 (2-4) % Baso % (Auto) 1.1 (0-2) % Neut # (Auto) 3700 (7473-4417) /uL Lymph # (Auto) 1800 (6424-0608) /uL [place] # (Auto) 500 (0-900) /uL Eos # (Auto) 200 (0-450) /uL Baso # (Auto) 100 (0-100) /uL PT 11.8 (9.4-12.5) SECONDS INR 1.0 (0.9-1.3) APTT 37 H (25.1-36.5) SECONDS Sodium 138 (137-145) mmol/L Potassium 3.5 (3.4-5.1) mmol/L Chloride 109 H (98-107) mmol/L Carbon Dioxide 22 (22-32) mmol/L BUN 14 (7-17) mg/dL Creatinine 0.82 (0.52-1.04) mg/dL Estimated GFR > 60 (>60) mL/min BUN/Creatinine Ratio 17.1 (6-22) Glucose 150 H (70-100) mg/dL Calcium 8.9 (8.4-10.2) mg/dL Magnesium 1.5 L (1.6-2.3) mg/dL Total Bilirubin 0.6 (0.2-1.3) mg/dL AST 25 (14-36) IU/L ALT 19 (<35) IU/L Alkaline Phosphatase 81 (38-126) U/L Total Creatine Kinase 117 (30-135) U/L Troponin I 0.015 0.020 (0.01-0.034) ng/mL NT-Pro-B Natriuret Pep 820 H (<125) pg/mL Total Protein 7.0 (6.3-8.2) g/dL Albumin 4.0 (3.5-5.0) g/dL Globulin 3.0 (1.7-4.1) g/dL Albumin/Globulin Ratio 1.3 (1.0-2.8) Lipase 93 (23-300) U/L Imaging Data Chest x-ray: Radiologist's Impression: PROCEDURE: XR CHEST 1V INDICATIONS: chest pain TECHNIQUE: One view of the chest was acquired. COMPARISON: [facility], CR, XR CHEST 2V, 07/09/2023, 15:17. FINDINGS: Surgical changes and devices: None. Lungs and pleura: Mild interstitial pulmonary edema. No pleural effusions or pneumothorax. Mediastinum: Mediastinal contours appear normal. Heart size is mildly enlarged. Bones and chest wall: No suspicious bony lesions. Overlying soft tissues appear unremarkable. IMPRESSION: Mild congestive heart failure. Dictated by: Wale Antoine M.D. on 03/17/2024 at 14:28 ECG Data Attestation: I personally reviewed and interpreted this ECG as follows: Prior ECG tracings: available for review Interpretation: Sinus rhythm rate 82 AK interval 150 QRS 156 QTC 495 left bundle-branch block noted similar to previous EKGs in 2018 no S[place] criteria similar to prior MDM Narrative Medical decision making narrative: MDM CC: Shortness of breath Complicating co-morbidities: Noncompliant with medication hypertension diabetes Medical records reviewed: Echo from 06/16/2019 There is moderate concentric left ventricular hypertrophy. Apical hypertrophy is present. The ejection fraction is estimated to be 30-35%. There is moderate global hypokinesis of the left ventricle. There is mild mitral regurgitation. There is mild tricuspid regurgitation. The right ventricular systolic pressure is estimated to be at least 34 mmHg based on an estimated right atrial pressure of 3 mm Hg. Differential considered: CAD, congestive heart failure ammonia Exam documented above, pertinent findings include: She does have conversational dyspnea but not extreme she has no peripheral edema lung sounds are clear she was mildly hypertensive Lab Test results independently reviewed as above. Pertinent findings: BNP 820 troponin 0.015 with repeat 0.012 CBC no leukocytosis no anemia CMPcreatinine 0.82 Independently reviewed EKG as above Sinus rhythm left bundle-branch block similar to previous EKGs Imaging studies independently reviewed: Chest x-ray shows congestive heart failure Treatments: Lasix Re-evaluations: Patient has been ambulatory to the restroom multiple times. Nursing staff does actually report significant improvement with her exertional dyspnea Discussion: Patient 54-year-old female presenting today with increasing shortness of breath. She does have an EF of 30-35% according to her echo in 2019. She has not had a repeat echo noncompliant with medication mildly hypertensive here in the ED. I do think she has mild congestive heart failure due to noncompliance most likely. She has not requiring oxygen. Does not meet criteria for admission at this time. Discussion with her about compliance and medication. She was given GoodRx coupons for her medication including Lasix and lisinopril. She has an appointment with a new primary care provider in about 6 days. She was given a work note so that she can be sure to make that appointment. She was also encouraged to return if symptoms should worsen Discharge Plan Departure Patient Disposition: Home Clinical Impression: CHF (congestive heart failure) Instructions: DI for Heart Failure Activity Restrictions/Additional Instructions: *You have been diagnosed with CHF *What to do: At this time you do need an outpatient echocardiogram which is an ultrasound of your heart Please take your medications *Continue to take medications as directed Lasix 20 mg once a day for 3 days--do not combine with hydrochlorothiazide Lisinopril 40 mg once a day *Follow up with your primary care provider in 2-3 days or call [phone] *Return to ER if you should have increasing chest pain shortness of breath or any new, worsening or concerning symptoms Prescriptions: New lisinopril 40 mg tablet 40 mg PO DAILY Qty: 30 0RF furosemide [Lasix] 20 mg tablet 20 mg PO DAILY Qty: 10 0RF No Action (DME) glucose monitor one touch vario See Rx Instructions .Route .MEDSUPPLY Qty: 1 0RF Rx Instructions: Use to test blood sugar twice a day. (DME) pen needle, diabetic [BD Nae 2nd Gen Pen Needle] 32 gauge x 5/32 needle See Rx Instructions .ROUTE .COMPLEX Qty: 100 3RF Dose Instruction: Use as directed with insulin pen once daily. Rx Instructions: Use as directed with insulin pen once daily. loratadine [Allergy Relief (loratadine)] 10 mg tablet 10 mg PO DAILY PRN (Reason: allergy symptoms) Qty: 90 3RF Rx Instructions: Take 1 tab by mouth for allergies and to prevent asthma exacerbations tobramycin 0.3 % drops 2 drp ophthalmic (eye) TID 7 Days Qty: 5 1RF (DME) one touch vario test strip See Rx Instructions .Route .MEDSUPPLY Qty: 100 0RF Rx Instructions: Use to test blood sugar twice a day. Ok to sub brand per insurance. (DME) Lancets See Rx Instructions .Route .MEDSUPPLY Qty: 100 0RF Rx Instructions: Use to test blood sugar twice a day. BRAND PER INSURANCE insulin NPH and regular human 100 unit/mL (70-30) insulin pen 20 unit SUBCUT BID Rx Instructions: 20 IU before breakfast and dinner (DME) pen needle, diabetic [TRUEplus Pen Needle] 32 gauge x 5/32 needle See Rx Instructions .ROUTE .COMPLEX Qty: 100 3RF Dose Instruction: Use as directed with insulin pen once daily. Rx Instructions: Use as directed with insulin pen once daily. (DME) [place] 0 .Route .MEDSUPPLY Qty: 100 6RF Dose Instruction: As directed Rx Instructions: As directed hydrochlorothiazide 25 mg tablet See Rx Instructions .ROUTE .COMPLEX Qty: 90 3RF Dose Instruction: Take 1 tablet by mouth each morning for high blood pressure, goal is <130/80 consistently Rx Instructions: Take 1 tablet by mouth each morning for high blood pressure, goal is <130/80 consistently lisinopril 40 mg tablet See Rx Instructions .ROUTE .COMPLEX Qty: 90 3RF Dose Instruction: TAKE TWO TABLETS BY MOUTH EACH MORNING FOR BLOOD PRESSURE Rx Instructions: TAKE TWO TABLETS BY MOUTH EACH MORNING FOR BLOOD PRESSURE metformin 500 mg tablet extended release 24 hr See Rx Instructions .ROUTE .COMPLEX Qty: 360 1RF Dose Instruction: TAKE FOUR TABLETS BY MOUTH DAILY WITH FOOD Rx Instructions: TAKE FOUR TABLETS BY MOUTH DAILY WITH FOOD rosuvastatin 40 mg tablet 40 mg PO DAILY Qty: 90 3RF Rx Instructions: Take 1 tab daily for cholesterol (DME) FreeStyle Ann 3 Sensor Device See Rx Instructions .ROUTE Q2W Qty: 1 Rx Instructions: As directed (DME) Respironics DreamStation Auto CPAP Qty: 1 Dose Instruction: As directed Patient Comments: Pressure: 9-16 cmH2O DME: [facility] Rx Instructions: As directed Referrals: Miscellaneous,Doctor, MD [Primary Care Provider] - Stand Alone Forms: Patient Portal/API/Survey, Work Release Note
[2024-03-17] MEDS: FUROSEMIDE 40 MG/4 ML VIAL IV (15:52)
--- NOTE | 2024-03-17 16:38 | PC.NURSE ---
pt up to BR multiple times. Steady gait noted. Appears in NAD.
== END 2024-03-17 18:13 | disposition home or self-care (01) ==
PROVIDERS: Emergency Provider Emergency Medicine
DX: I11.0 Hypertensive heart disease with heart failure (principal); I50.9 Heart failure, unspecified; T50.906A Underdosing of unspecified drugs, medicaments and biological substances, initial encounter; I44.7 Left bundle-branch block, unspecified; E11.9 Type 2 diabetes mellitus without complications; Z79.4 Long term (current) use of insulin; Z91.141 Patient's other noncompliance with medication regimen due to financial hardship; Z59.86 Financial insecurity
CPT/HCPCS: 36415; 71045; 80053; 82550; 83690; 83735; 83880; 84484; 85025; 85610; 85730; 93005; 96374; 99284; J1940

== ENCOUNTER → 2024-04-14 08:33 | Outpatient (CLI) | payer OTHER, SELFPAY ==
--- NOTE | 2024-04-14 09:06 | DI.ECHO.S_ITS ---
[facility]+ [facility] : : [address] : : [place] : : [id number] : : Phone: [phone] Echocardiogram Report + + :Name: KAYLA BENJAMIN Study Date: 04/14/2024 Height: 65.5 in: :[facility] ReadingLocation: Weight: 235 lb : : Gender: Female BSA: 2.1 m2 : :: 1970 Age: 54 yrs BP: 145/81 mmHg: :Reason For Study: CONGESTIVE HEART FAILURE : :Ordering Physician: ADRIAN, : :BRI Performed By: Noy Santiago : :Referring: BRI CAMPBELL : + + Interpretation Summary Left ventricular ejection fraction is estimated to be 40 +/- 5%. Left ventricular systolic function has slightly improved compared to the previous exam. There is mild global hypokinesis of the left ventricle. There is mild mitral regurgitation. There is mild tricuspid regurgitation. The right ventricular systolic pressure is estimated to be at least 29 mmHg based on an estimated right atrial pressure of 3 mm Hg. Consider cardiac MRI to better evaluate EF and myocardial structure. Procedure: A two-dimensional transthoracic echocardiogram with color flow and Doppler was performed. The study quality was technically adequate. Images from the parasternal window were difficult to obtain and are suboptimal in quality. A contrast injection of Definity was performed to improve assessment for apical thrombus. The patient had a bundle branch block rhythm during the exam. The heart rate ranged between 60-75 bpm during the study. Left Ventricle: The left ventricle is normal in size. Left ventricular ejection fraction is estimated to be 40 +/- 5%. Left ventricular systolic function has slightly improved compared to the previous exam. There is mild global hypokinesis of the left ventricle. Right Ventricle: The right ventricle is normal in size and function. Atria: The left atrial size is normal. Right atrial size is normal. There is no Doppler evidence for an interatrial shunt. Mitral Valve: The mitral valve leaflets appear mildly thickened, but open well. There is mild mitral regurgitation. Aortic Valve: The aortic valve is trileaflet. The aortic valve opens well. There is no aortic valve stenosis. No aortic regurgitation is present. Tricuspid Valve: The tricuspid valve leaflets are thin and pliable. There is mild tricuspid regurgitation. The right ventricular systolic pressure is estimated to be at least 29 mmHg based on an estimated right atrial pressure of 3 mm Hg. Pulmonic Valve: The pulmonic valve is not well visualized. There is no pulmonic valvular regurgitation. Great Vessels: The aortic root is normal size. The dimensions of the ascending aorta are normal. The IVC is of normal diameter and collapses greater than 50% with a sniff. This suggests a low right atrial pressure of 3 mm Hg. Pericardium/ Pleura There is a trivial pericardial effusion noted. There is no pleural effusion. MMode/2D Measurements & Calculations LVIDd: 5.0 cm LVOT diam: 2.0 cm LVIDs: 3.9 cm Ao root diam: 3.0 cm FS: 22.0 % asc Aorta Diam: 3.0 cm EPSS: 1.4 cm Ao Arch Diam (Prox Trans): 3.1 cm IVSd: 1.4 cm LVPWd: 1.2 cm LV cordero. diameter/BSA (cm/m^2): 2.3 LV sys. diameter/BSA (cm/m^2): 1.8 LA A2 area: 20.2 cm2 RA long axis: 4.6 cm LA A4 area: 19.4 cm2 RA area: 12.9 cm2 LA length (vol): 5.2 cm RA vol: 30.5 ml LA vol: 63.7 ml RA : 14.3 ml/m2 LA vol index: 29.9 ml/m2 IVC diam: 1.8 cm RVD1 (basal): 3.6 cm TAPSE: 2.0 cm Doppler Measurements & Calculations Ao V2 max: 190.4 cm/sec LVOT Max Andrew: 96.0 cm/sec Ao V2 mean: 131.2 cm/sec LV V1 max P.7 mmHg Ao max P.5 mmHg LV V1 VTI: 18.1 cm Ao mean P.7 mmHg FOREST(I,D): 1.7 cm2 Ao V2 VTI: 35.6 cm FOREST(V,D): 1.6 cm2 sev ratio: 0.51 FOREST indexed to BSA (cm^2/m^2): 0.78 MV E max andrew: 94.4 cm/sec TR max andrew: 253.4 cm/sec MV A max andrew: 105.0 cm/sec TR max P.7 mmHg MV E/A: 0.90 PA V2 max: 116.2 cm/sec Med Peak E' Andrew: 3.7 cm/sec PA V2 mean: 78.6 cm/sec E/E' med: 25.2 PA mean P.7 mmHg Lat Peak E' Andrew: 4.5 cm/sec PA pr(Accel): 50.7 mmHg E/E' lat: 20.9 E/e' average: 23.0 MV dec time: 0.22 sec SV(LVOT): 58.9 ml Reading Physician:01:29 PM
[2024-04-14 09:45] LABS: Hemoglobin A1C% w Est Avg Glu 7.7 % (4.0-6.0)
[2024-04-14 10:09] LABS: Cholesterol 133 mg/dL (140-199); HDL Cholesterol 74 mg/dL (40-60); LDL Cholesterol Calculated 47 mg/dL (<100); Triglycerides 62 mg/dL (35-150)
[2024-04-14 10:23] LABS: Free T3, Triiodothyronine Free 4.42 pg/mL (2.77-5.27); Free T4, Direct Thyroxine 1.26 ng/dL (0.78-2.19)
[2024-04-14 10:34] LABS: Creatinine Urine Random 154.49 mg/dL
[2024-04-14 10:36] LABS: Thyroid Stimulating Hormone 1.57 uIU/mL (0.47-4.68)
[2024-04-14 10:38] LABS: Microalbumin Urine Random 3.5 mg/dL (0-1.6)
[2024-04-15 22:40] LABS: HIV 1 & 2 Ab/Ag 4th Gen Combo NEGATIVE (NEGATIVE); Hep C Virus Ab w/Reflex Quant NEGATIVE s/c (NEGATIVE)
== END ==
PROVIDERS: Nurse Practitioner; PCP Family Medicine; Referring Provider Family Medicine; Visit Provider Family Medicine
DX: I08.1 Rheumatic disorders of both mitral and tricuspid valves (principal); I11.0 Hypertensive heart disease with heart failure; I50.9 Heart failure, unspecified; E11.65 Type 2 diabetes mellitus with hyperglycemia; E11.29 Type 2 diabetes mellitus with other diabetic kidney complication; R80.9 Proteinuria, unspecified; E78.2 Mixed hyperlipidemia; Z13.29 Encounter for screening for other suspected endocrine disorder; Z11.59 Encounter for screening for other viral diseases; Z11.4 Encounter for screening for human immunodeficiency virus [HIV]; Z79.4 Long term (current) use of insulin
CPT/HCPCS: 36415; 80061; 82043; 82570; 83036; 84439; 84443; 84481; 86803; 87389; C8929; Q9957

== ENCOUNTER 2024-07-06 17:35 | Emergency (ER) | payer OTHER, SELFPAY ==
[2024-07-06 17:36] VITALS: BP 176/82; PULSE 69; RESP 17; TEMP 36.9; O2SAT 99; BMI 38.7
[2024-07-06 17:40] VITALS: BP 176/82; PULSE 80; O2SAT 97
--- NOTE | 2024-07-06 17:41 | EKG_ITS ---
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
--- NOTE | 2024-07-06 17:43 | DI.RAD.S_ITS ---
PROCEDURE: XR CHEST 1V INDICATIONS: Shortness of breath TECHNIQUE: One view of the chest was acquired. COMPARISON: [facility], , XR CHEST 1V, 03/17/2024, 13:45. FINDINGS: Surgical changes and devices: None. Lungs and pleura: Mild pulmonary vascular congestion is seen. No definite focal infiltrate.. No pleural effusions or pneumothorax. Mediastinum: Mediastinal contours appear normal. Heart size is enlarged. Bones and chest wall: No suspicious bony lesions. Overlying soft tissues appear unremarkable. IMPRESSION: Finding is suggestive of CHF. No definite focal infiltrate. No pleural effusion or pneumothorax. Dictated by: Dilip Le M.D. on 07/06/2024 at 18:10 Approved by: Dilip Le M.D. on 07/06/2024 at 18:10
[2024-07-06 17:58] LABS: Add Manual Diff / Slide Review NO; Basophils Absolute Auto 100 /uL (0-100); Eosinophils Absolute Auto 200 /uL (0-450); Eosinophils Percent Auto 2.3 % (2-4); Hemoglobin 12.8 g/dL (12.0-16.0); Lymphocytes Absolute Auto 2900 /uL (1100-4500); Lymphocytes Percent Auto 42.5 % (25-40); Mean Corpuscular HGB Conc 33.8 % (30-36); Mean Corpuscular Hemoglobin 29.8 PG (26-34); Mean Corpuscular Volume 88.2 fL (80-100); Monocytes Absolute Auto 600 /uL (0-900); Monocytes Percent Auto 8.7 % (3-14); Neutrophils Absolute Auto 3100 /uL (1500-7000); Neutrophils Percent Auto 45.5 % (50-75); Platelet Count 241 X10^3/uL (150-400); Red Blood Cell Count 4.31 X10^6/uL (4.0-5.2); Red Cell Distribution Width 13.6 % (11.6-14.8); White Blood Cell Count 6.9 X10^3/uL (4.5-11.0)
[2024-07-06 18:00] VITALS: BP 157/88; PULSE 71; RESP 16; O2SAT 98
[2024-07-06 18:09] LABS: Prothrombin Time 11.4 SECONDS (9.4-12.5)
[2024-07-06 18:14] LABS: Alanine Aminotransferase 27 IU/L (<35); Albumin 4.4 g/dL (3.5-5.0); Albumin Globulin Ratio 1.4 (1.0-2.8); Alkaline Phosphatase 73 U/L (38-126); Aspartate Aminotransferase 40 IU/L (14-36); BUN Creatinine Ratio 21.1 (6-22); Bilirubin Total 0.5 mg/dL (0.2-1.3); Blood Urea Nitrogen 26 mg/dL (7-17); Calcium 9.6 mg/dL (8.4-10.2); Carbon Dioxide 20 mmol/L (22-32); Chloride 110 mmol/L (98-107); Estimated Glomerular Filt Rate 52 mL/min (>60); Globulin 3.1 g/dL (1.7-4.1); Glucose 74 mg/dL (70-99); HEMOLYSIS < 15 (0-50); Potassium 3.9 mmol/L (3.4-5.1); Sodium 140 mmol/L (137-145); Total Protein 7.5 g/dL (6.3-8.2)
[2024-07-06 18:15] LABS: Lactate (Lactic Acid) 0.6 mmol/L (0.7-2.1)
[2024-07-06 18:26] LABS: NT-proBNP (BNP-Adult 18+) 826 pg/mL (<125); Troponin I 0.014 ng/mL (0.01-0.034)
[2024-07-06 18:30] VITALS: BP 175/84; PULSE 69; RESP 8; O2SAT 98
--- NOTE | 2024-07-06 18:30 | ED_ITS ---
HPI - SOB/Dyspnea General Chief Complaint: Shortness of Breath/Dyspnea Stated Complaint: SOB, palpitations Time Seen by Provider: 07/06/24 17:55 Source: patient Mode of arrival: Ambulatory Limitations: no limitations History of Present Illness HPI Narrative: Patient is a 54-year-old female history of congestive heart failure type 2 diabetes hyperlipidemia presenting today with shortness of breath. He reports that last night she was fine this morning woke up and just noticed she was a little more short of breath with exertion. Also has some shortness of breath at rest but not noticing any conversational dyspnea now. No chest pain or lower extremity edema. Reports that she has been meaning to by a scale but unfortunately has not she was going to go get 1. She has not noted significant weight gain. No fever chills or cough. She went to work today she was feeling okay. She does not have a prescription for furosemide. Has an upcoming appointment with Cardiology she was not sure when. Related Data Home Medications Medication Instructions Recorded Confirmed Respironics DreamStation Auto CPAP #1 ea 03/25/18 04/21/24 blood-glucose sensor (FreeStyle #1 ea 10/21/23 04/21/24 Ann 3 Sensor device) lisinopril 40 mg tablet 40 mg PO DAILY 03/22/24 04/21/24 metformin 500 mg tablet,extended 1,000 mg PO BID 03/22/24 04/21/24 release 24 hr hydrochlorothiazide 25 mg tablet 25 mg PO QAM 04/21/24 insulin NPH-regular 70-30 U-100 23 unit SUBCUT BID 04/21/24 04/21/24 insulin 100 unit/mL subcutaneous pen Previous Rx's Medication Instructions Recorded glucose monitor one touch vario #1 ea 06/26/20 loratadine 10 mg tablet (Allergy 10 mg PO DAILY PRN allergy 09/06/22 Relief (loratadine)) symptoms #90 tabs Lancets #100 ea 05/05/23 one touch vario test strip #100 ea 05/05/23 rosuvastatin 40 mg tablet 40 mg PO DAILY #90 tabs 05/14/23 pen needle, diabetic 32 gauge x #100 ea 10/09/23 (TRUEplus Pen Needle) carvedilol 3.125 mg tablet 3.125 mg PO BID #60 tabs 03/22/24 empagliflozin 10 mg tablet 10 mg PO DAILY #30 tabs 04/21/24 (Jardiance) furosemide 20 mg tablet (Lasix) 20 mg PO DAILY PRN weight gain #10 07/06/24 tabs hydrochlorothiazide 25 mg tablet 25 mg PO DAILY #30 tabs 07/06/24 Allergies Allergy/AdvReac Type Severity Reaction Status Date / Time hydrocodone [HYDROCODONE] Allergy Mild FROM Verified 07/06/24 17:43 VICODIN - HIVES Patient History Medical History Obstructive sleep apnea of adult Diabetes mellitus, with long-term current use of insulin Hordeolum externum of right lower eyelid Conjunctivitis Gastric reflux Elevated blood pressure reading with diagnosis of hypertension Shortness of breath on exertion Noncompliance w/medication treatment due to intermit use of medication Weight loss counseling, encounter for Non-insulin dependent type 2 diabetes mellitus Chronic joint pain Type 2 diabetes mellitus Behaviorally induced insufficient sleep syndrome Primary insomnia Morbid obesity with BMI of 40.0-44.9, adult Central sleep apnea Excessive daytime sleepiness Insomnia, persistent Snoring Diabetes mellitus (2011) Hypertension Hayfever Ankle pain (2014) Ventricular premature beats (01/31/15) Hypertension Left bundle branch block Palpitations Surgical History Anesthesia History of right knee surgery Status post delivery Family History Brother Age: 62 Diabetes mellitus Father Stroke Grandmother Diabetes mellitus Mother Diabetes mellitus Social History marital status: unmarried,single details: lives with 12-yo daughter; in last quarter of school at [employer] lives independently: Yes caregiver/support person: No education level: college occupational status: student miguelito/jainism: Catholic other: very active in sikhism Smoking Status: Unknown if ever smoked alcohol intake: current substance use type: does not use Smoking Status: Unknown if ever smoked Alcohol type: wine Exam Initial Vital Signs Initial Vital Signs: Vital Signs Temperature 98.4 F 07/06/24 17:36 Pulse Rate 69 07/06/24 17:36 Respiratory Rate 17 07/06/24 17:36 Blood Pressure 176/82 H 07/06/24 17:36 Pulse Oximetry 99 07/06/24 17:36 Oxygen Delivery Method Room Air 07/06/24 17:36 GENERAL: Alert very pleasant 54-year-old female and in no acute distress. HEENT: Head atraumatic,EOMI, pupils reactive, face symmetric, moist mucous membranes CARDIOVASCULAR: Regular rate and rhythm without murmurs, rubs or gallops. RESPIRATORY: Breath sounds equal bilaterally, no wheezes rales or rhonchi. No conversational dyspnea wheezing rales or rhonchi ABDOMEN: Soft, nontender. Normoactive bowel sounds all 4 quadrants. No guarding or rebound. EXTREMITIES: Normal range of motion, no clubbing or edema. Neurovascularly intact NEUROLOGICAL: Alert and oriented x4.Normal gait and speech. Cranial nerves II through XII grossly intact. SKIN: Warm, dry, no laceration, no petechiae, no rashes or lesions. Course Orders Ordered: ED Orders 07/06/24 17:43 XR chest 1V Stat EKG-12 Lead Stat Measure peak expiratory flow STAT RT Consult Eval and Treat STAT 07/06/24 17:51 Complete Blood Count AUTO DIFF Stat Comprehensive Metabolic Panel Stat Lactate (Lactic Acid) Stat NT-proBNP (BNP-Adult 18+) Stat Prothrombin Time INR Stat Troponin I Stat Vital Signs Vital signs: Vital Signs - 8 hr 07/06/24 18:30 07/06/24 18:30 07/06/24 19:00 Pulse Rate 69 71 Respiratory Rate 8 L 17 Blood Pressure 175/84 H Pulse Oximetry 98 98 07/06/24 19:00 Pulse Rate Respiratory Rate Blood Pressure 141/75 H Pulse Oximetry MDM - SOB/Dyspnea Lab Data 07/06/24 17:51 07/06/24 17:51 Labs: Lab Results 07/06/24 Range/Units 17:51 WBC 6.9 (4.5-11.0) X10^3/uL RBC 4.31 (4.0-5.2) X10^6/uL Hgb 12.8 (12.0-16.0) g/dL Hct 38.0 (36-46) % MCV 88.2 (80-100) fL MCH 29.8 (26-34) PG MCHC 33.8 (30-36) % RDW 13.6 (11.6-14.8) % Plt Count 241 (150-400) X10^3/uL Neut % (Auto) 45.5 L (50-75) % Lymph % (Auto) 42.5 H (25-40) % Gonzales % (Auto) 8.7 (3-14) % Eos % (Auto) 2.3 (2-4) % Baso % (Auto) 1.0 (0-2) % Neut # (Auto) 3100 (6553-6055) /uL Lymph # (Auto) 2900 (2290-4656) /uL Gonzales # (Auto) 600 (0-900) /uL Eos # (Auto) 200 (0-450) /uL Baso # (Auto) 100 (0-100) /uL PT 11.4 (9.4-12.5) SECONDS INR 1.0 (0.9-1.3) Sodium 140 (137-145) mmol/L Potassium 3.9 (3.4-5.1) mmol/L Chloride 110 H (98-107) mmol/L Carbon Dioxide 20 L (22-32) mmol/L BUN 26 H (7-17) mg/dL Creatinine 1.23 H (0.52-1.04) mg/dL Estimated GFR 52 L (>60) mL/min BUN/Creatinine Ratio 21.1 (6-22) Glucose 74 (70-99) mg/dL Lactate 0.6 L (0.7-2.1) mmol/L Calcium 9.6 (8.4-10.2) mg/dL Total Bilirubin 0.5 (0.2-1.3) mg/dL AST 40 H (14-36) IU/L ALT 27 (<35) IU/L Alkaline Phosphatase 73 (38-126) U/L Troponin I 0.014 (0.01-0.034) ng/mL NT-Pro-B Natriuret Pep 826 H (<125) pg/mL Total Protein 7.5 (6.3-8.2) g/dL Albumin 4.4 (3.5-5.0) g/dL Globulin 3.1 (1.7-4.1) g/dL Albumin/Globulin Ratio 1.4 (1.0-2.8) Imaging Data Chest x-ray: Radiologist's Impression: PROCEDURE: XR CHEST 1V INDICATIONS: Shortness of breath TECHNIQUE: One view of the chest was acquired. COMPARISON: [facility], XR CHEST 1V, 03/17/2024, 13:45. FINDINGS: Surgical changes and devices: None. Lungs and pleura: Mild pulmonary vascular congestion is seen. No definite focal infiltrate.. No pleural effusions or pneumothorax. Mediastinum: Mediastinal contours appear normal. Heart size is enlarged. Bones and chest wall: No suspicious bony lesions. Overlying soft tissues appear unremarkable. IMPRESSION: Finding is suggestive of CHF. No definite focal infiltrate. No pleural effusion or pneumothorax. Dictated by: Dilip Le M.D. on 07/06/2024 at 18:10 ECG Data Attestation: I personally reviewed and interpreted this ECG as follows: Prior ECG tracings: available for review Interpretation: Sinus rhythm rate 69 OK interval 156 QRS 56 QTC 456 left bundle-branch block noted similar to prior EKGs no Sgarbossa criteria no ST changes MDM Narrative Medical decision making narrative: MDM CC: Shortness of breath Complicating co-morbidities: Congestive heart failure diabetes hyperlipidemia Data collected from: Patient Medical records reviewed: PCP no reviewed Differential considered: Congestive heart failure pneumonia ACS viral illness Exam documented above, pertinent findings include: Alert very well-appearing 54-year-old female no respiratory distress speaking in full sentences no wheezes rales or rhonchi no peripheral edema Lab Test results independently reviewed as above. Pertinent findings: BNP 826 Troponin 0.014 Had elevated creatinine 1.23 previously 0.82 in February No leukocytosis no anemia Independently reviewed EKG as above Sinus rhythm left bundle-branch block no ischemia or changes Imaging studies independently reviewed: Chest x-ray suggestive of congestive heart failure no definite infiltrate or pleural effusion Consultations: None Treatments: None Discussion: Patient 54-year-old female presenting today with shortness of breath with history of congestive heart failure. She says it just started today she was trying to take care of herself and be on top of things. She does not have a prescription for furosemide in his currently out of her hydrochlorothiazide. She was not hypoxic not in any sort of respiratory distress no evidence of significant fluid overload. BNP is relatively the same not having any kind of chest pain or ischemia symptoms. At this time discussion with her of getting Lasix here in the ED versus waiting until tomorrow, which seems reasonable. She is fine to start Lasix tomorrow. Discussion of how to use it I will give her some extra to help keep her from coming back to the emergency department Discharge Plan Departure Patient Disposition: Home Clinical Impression: CHF (congestive heart failure) Instructions: Heart Failure Activity Restrictions/Additional Instructions: *You have been diagnosed with congestive heart failure *What to do: At this time your labs and x-ray look about normal but we will go ahead and start your furosemide tomorrow *Continue to take medications as directed Furosemide 20 mg once a day for 3 days then stop Hydrochlorothiazide 25 mg in the morning do not combine with furosemide *Follow up with your primary care provider in 2-3 days or call [phone] *Return to ER if you should have increasing chest pain shortness of breath or any new, worsening or concerning symptoms Prescriptions: New furosemide [Lasix] 20 mg tablet 20 mg PO DAILY PRN (Reason: weight gain) Qty: 10 0RF hydrochlorothiazide 25 mg tablet 25 mg PO DAILY Qty: 30 0RF No Action (DME) glucose monitor one touch vario See Rx Instructions .Route .MEDSUPPLY Qty: 1 0RF Rx Instructions: Use to test blood sugar twice a day. loratadine [Allergy Relief (loratadine)] 10 mg tablet 10 mg PO DAILY PRN (Reason: allergy symptoms) Qty: 90 3RF Rx Instructions: Take 1 tab by mouth for allergies and to prevent asthma exacerbations (DME) one touch vario test strip See Rx Instructions .Route .MEDSUPPLY Qty: 100 0RF Rx Instructions: Use to test blood sugar twice a day. Ok to sub brand per insurance. (DME) Lancets See Rx Instructions .Route .MEDSUPPLY Qty: 100 0RF Rx Instructions: Use to test blood sugar twice a day. BRAND PER INSURANCE (DME) pen needle, diabetic [TRUEplus Pen Needle] 32 gauge x 5/32 needle See Rx Instructions .ROUTE .COMPLEX Qty: 100 3RF Dose Instruction: Use as directed with insulin pen once daily. Rx Instructions: Use as directed with insulin pen once daily. insulin NPH and regular human 100 unit/mL (70-30) insulin pen 23 unit SUBCUT BID Rx Instructions: 23 IU before breakfast and dinner lisinopril 40 mg tablet 40 mg PO DAILY metformin 500 mg tablet extended release 24 hr 1,000 mg PO BID carvedilol 3.125 mg tablet 3.125 mg PO BID Qty: 60 3RF Rx Instructions: must administer with a meal/food rosuvastatin 40 mg tablet 40 mg PO DAILY Qty: 90 3RF Rx Instructions: Take 1 tab daily for cholesterol (DME) FreeStyle Ann 3 Sensor Device See Rx Instructions .ROUTE Q2W Qty: 1 Rx Instructions: As directed hydrochlorothiazide 25 mg tablet 25 mg PO QAM Patient Comments: Take 1 tablet by mouth each morning for high blood pressure, goal is <130/80 consistently Jardiance 10 mg tablet 10 mg PO DAILY Qty: 30 3RF (DME) Respironics DreamStation Auto CPAP Qty: 1 Dose Instruction: As directed Patient Comments: Pressure: 9-16 cmH2O DME: [employer] Rx Instructions: As directed Referrals: Josephine Soliz DO [Primary Care Provider] - Stand Alone Forms: Patient Portal/API/Survey
[2024-07-06 19:00] VITALS: BP 141/75; PULSE 71; RESP 17; O2SAT 98
== END 2024-07-06 19:15 | disposition home or self-care (01) ==
PROVIDERS: Emergency Medicine; Emergency Provider Emergency Medicine; PCP Family Medicine
DX: I11.0 Hypertensive heart disease with heart failure (principal); I50.9 Heart failure, unspecified; I44.7 Left bundle-branch block, unspecified
CPT/HCPCS: 36415; 71045; 80053; 83605; 83880; 84484; 85025; 85610; 93005; 99283; 99284